=== PATIENT | male | born 1985 | race Caucasian/White ===

== ENCOUNTER 2019-03-15 18:15 | Emergency (ER) | payer BC ==
--- OUTSIDE RECORDS SUMMARY | 2019-03-15 18:21 | XMS REPORT | Continuity of Care Document ---
:1985 External Reference #:[id number] Author Name Siobhan Armenta MD Address [address] [place] [address] Problems Description No Information Available Social History Type Date Description Comments Sex Unknown Tobacco Use Start: Unknown End: Former Cigarette Smoker Quit 02/28 Unknown ETOH Use Currently consumes alcohol 2 x per week 18 beers Tobacco Use Start: Unknown End: Patient is a former smoker Quit 02/2006 Unknown Smoking Status Reviewed: 02/03/19 Patient is a former smoker Quit 02/2006 Allergies, Adverse Reactions, Alerts Description No Known Drug Allergies Medications Active Medications SIG Qnty Indications Ordering Provider Date Naproxen 1 by mouth twice 60tabs M65.4 Siobhan Armenta 06/01/2017 500mg Tablets a day as needed MD Sushma Immunizations Description No Information Available Vital Signs Date Vital Result Comment 02/03/2019 2:11pm Weight 250.00 lb Heart Rate 92 /min BP Systolic 132 mmHg BP Diastolic 78 mmHg Height 73 inches 6'1" BMI (Body Mass Index) 33.0 kg/m2 12/06/2017 9:45am Body Temperature 98.0 F Weight 257.00 lb Heart Rate 73 /min BP Systolic 126 mmHg BP Diastolic 90 mmHg Height 73 inches 6'1" BMI (Body Mass Index) 33.9 kg/m2 Results Description No Information Available Procedures Description No Information Available Medical Devices Description No Information Available Encounters Description No Information Available Assessments Date Code Description Provider 02/03/2019 E66.9 Obesity, unspecified Siobhan Armenta MD 02/03/2019 Z01.89 Encounter for other specified special Siobhan Armenta MD examinations 02/03/2019 Z68.33 Body mass index (BMI) 33.0-33.9, adult Siobhan Armenta MD Plan of Treatment No Information Available Functional Status Description No Information Available Mental Status Description No Information Available Referrals Description No Information Available
[2019-03-15 18:42] VITALS: BP 114/66
--- NOTE | 2019-03-15 19:57 | UC ---
Back Pain HPI - HPI Summary HPI Summary: 33-year-old male presents with complaints of right lower back pain that started suddenly after he bent over and was lifting a rock. Describes pain as constant and sharp. Worsens with twisting or bending. He took [id number]-[id number] naproxen and did some heat therapy with some relief of the pain. Denies fever, chills, abdominal pain, nausea, vomiting, dysuria, frequency, urgency, hematuria , numbness, tingling, weakness of lower extremities, or loss of bowel or bladder control. - History of Current Complaint Chief Complaint: UCBackPain Stated Complaint: BACK INJURY Time Seen by Provider: 03/15/19 19:52 Hx Obtained From: Patient Pain Intensity: 8 - Allergies/Home Medications Allergies/Adverse Reactions: Allergies Allergy/AdvReac Type Severity Reaction Status Date / Time No Known Allergies Allergy Verified 03/15/19 18:42 Home Medications: Home Medications Naproxen Sodium [Aleve] 660 mg PO ONCE 03/15/19 [History Confirmed 03/15/19] PMH/Surg Hx/FS Hx/Imm Hx Previously Healthy: Yes - Denies significant PMH - Surgical History Surgical History: None - Family History Known Family History: Positive: Non-Contributory - Social History Occupation: Employed Full-time Lives: Alone Alcohol Use: Weekly Alcohol Amount: 2x Substance Use Type: None Smoking Status (MU): Never Smoked Tobacco Review of Systems All Other Systems Reviewed And Are Negative: Yes Constitutional: Negative: Fever, Chills Skin: Negative: Rash Respiratory: Positive: Negative Cardiovascular: Positive: Negative Gastrointestinal: Negative: Abdominal Pain, Vomiting, Nausea Genitourinary: Negative: Dysuria, Hematuria, Frequency, Urgency Musculoskeletal: Positive: Other: - See HPI Neurological: Negative: Weakness, Paresthesia, Numbness Is Patient Immunocompromised?: No Physical Exam - Summary Physical Exam Summary: GENERAL APPEARANCE: Well developed, well nourished, alert and cooperative, and appears to be in no acute distress. CARDIAC: Normal S1 and S2. No S3, S4 or murmurs. Rhythm is regular. There is no peripheral edema, cyanosis or pallor. Extremities are warm and well perfused. Capillary refill is less than 2 seconds. Peripheral pulses intact. LUNGS: Clear to auscultation without rales, rhonchi, wheezing or diminished breath sounds. ABDOMEN: Positive bowel sounds. Soft, nondistended, nontender. No guarding or rebound. No masses or hepatosplenomegally. MUSKULOSKELETAL: ROM intact to all extremities. No joint erythema or tenderness. Normal muscular development. Normal gait. BACK: No midline spinal deformity or tenderness. Right paraspinous soft tissue tenderness without spasm. NEUROLOGICAL: Strength and sensation symmetric and intact throughout. SKIN: Skin normal color, texture and turgor with no lesions or eruptions. Triage Information Reviewed: Yes Vital Signs: Initial Vital Signs Temp 100.4 F 03/15/19 18:37 Pulse 75 03/15/19 18:37 Resp 16 03/15/19 18:37 BP 114/66 03/15/19 18:37 Pulse Ox 99 03/15/19 18:37 Vital Signs Reviewed: Yes Back Pain Course/Dx - Course Course Of Treatment: 33-year-old male presents with complaints of right lower back pain that started suddenly after he bent over and was lifting a rock. Describes pain as constant and sharp. Worsens with twisting or bending. He took ggjw-qkr-smeqeck naproxen and did some heat therapy with some relief of the pain. Denies fever, chills, abdominal pain, nausea, vomiting, dysuria, frequency, urgency, hematuria , numbness, tingling, weakness of lower extremities, or loss of bowel or bladder control. At triage patient was noted to have a mildly elevated temperature 100.1 F however repeat temperature was normal. Remainder of vital signs were stable. On exam patient had no midline spinal deformity or tenderness but was noted to have right paraspinous soft tissue tenderness without spasm. Remainder of exam was unremarkable. Recommending conservative treatment for a lower back strain including xnxq-fmw-eqrycis NSAIDs and cyclobenzaprine 10 mg every 8 hours as needed for severe pain or spasm as well as heat therapy. He is to follow-up with his primary care provider in 7 days if symptoms are not improving. Anticipatory guidance and warning symptoms were reviewed with the patient. Verbalizes understanding and agrees with plan of care. - Differential Dx/Diagnosis Differential Diagnosis/HQI/PQRI: Epidural Abscess, Herniated Disc, Renal Colic, Strain Provider Diagnosis: Low back strain Discharge ED - Sign-Out/Discharge Documenting (check all that apply): Patient Departure All imaging exams completed and their final reports reviewed: No Studies - Discharge Plan Condition: Stable Disposition: HOME Prescriptions: Cyclobenzaprine HCl 10 mg PO Q8HR #21 tablet Patient Education Materials: Low Back Strain (ED) Referrals: Jordyn Phillips [Primary Care Provider] - 7 Days (If no improvement in symptoms.) Additional Instructions: Your history and exam are consistent with a low back strain. Continue to take naproxen (Aleve) according to directions as needed for pain. Take cyclobenzaprine 10 mg 1 tablet every 8 hours as needed for severe pain or spasm. Be aware that this medication will cause drowsiness so do not take and drive or operate machinery. Apply a heating pad to the affected area for 15-20 minutes at least 4 times a day to help with the pain and relax the muscles. Follow-up with her primary care provider in 7 days if symptoms are not improving. Seek immediate medical attention in the emergency room if you develop a fever greater than 100.5 F, have severe pain despite taking pain medication, severe abdominal pain, persistent vomiting, you have numbness, tingling, or weakness of the lower extremities, difficulty walking, lose control of her bowel or bladder, or have any worsening of symptoms. - Billing Disposition and Condition Condition: STABLE Disposition: Home
== END 2019-03-15 20:19 | disposition home or self-care (01) ==
LOC: UCEAST 18:15
DX: S39.012A Strain of muscle, fascia and tendon of lower back, initial encounter (principal); X50.0XXA Overexertion from strenuous movement or load, initial encounter; Y92.9 Unspecified place or not applicable
CPT/HCPCS: 99202; G0463